=== PATIENT | male | born 1990 | race Caucasian/White ===

== ENCOUNTER 2018-04-19 00:49 | Emergency (ER) | payer SELFPAY ==
[~2018-04-19] VITALS: Ht 180.3 cm; Wt 104.0 kg
[2018-04-19] MEDS ORDERED: MAGNESIUM/ALUMINUM HYDROXIDE/SIMETHICONE 30ML UDC PO STA (02:12)
[2018-04-19] MEDS ORDERED: VISCOUS LIDOCAINE 2% 15 ML UDC PO STA (02:12)
[2018-04-19 02:32] LABS: BASOPHILS % 0.4 % (0.0-2.0); EOSINOPHILS % 0.1 % (0.0-5.0); HEMATOCRIT. 45.8 % (42.0-52.0); HEMOGLOBIN. 15.6 g/dL (14.0-18.0); LYMPHOCYTES % 12.9 % (20.0-50.0); MEAN CORPUSCULAR HEMOGLOBIN 30.6 pg (28.0-32.0); MEAN CORPUSCULAR VOLUME 89.8 fL (80.0-94.0); MEAN PLATELET VOLUME 10.4 fl (7.4-10.4); NEUTROPHILS % 82.6 % (40.0-76.0); PLATELET 233 x1000/uL (130-400); RED BLOOD CELL COUNT 5.11 mill/uL (4.7-6.1); RED CELL DISTRIBUTION WIDTH 12.9 % (11.6-14.6)
[2018-04-19 02:39] LABS: CHLORIDE 105 mEq/L (98-107)
[2018-04-19 02:45] LABS: CLARITY URINE CLEAR (CLEAR); COLOR URINE DARK YELLOW (YELLOW); KETONES URINE TRACE (NEGATIVE); LEUKOCYTE ESTERASE URINE NEGATIVE (NEGATIVE); NITRITE URINE NEGATIVE (NEGATIVE); OCCULT BLOOD URINE NEGATIVE (NEGATIVE); PROTEIN URINE 1+ (NEGATIVE); SPECIFIC GRAVITY URINE 1.024 (1.005-1.030)
[2018-04-19 05:34] VITALS: BP 134/84
== END 2018-04-19 05:37 | disposition home or self-care (01) ==
LOC: ER 00:49
DX: K29.70 Gastritis, unspecified, without bleeding (principal)
CPT/HCPCS: 36415; 80053; 81003; 83690; 85025; 93005; 99285; J7030

== ENCOUNTER 2018-04-20 00:06 | Emergency (ER) | payer SELFPAY ==
[~2018-04-20] VITALS: Ht 180.3 cm; Wt 110.0 kg
[2018-04-20] MEDS ORDERED: VISCOUS LIDOCAINE 2% 15 ML UDC MM STA (02:59)
[2018-04-20] MEDS ORDERED: MAGNESIUM/ALUMINUM HYDROXIDE/SIMETHICONE 30ML UDC PO STA (02:59)
[2018-04-20] MEDS ORDERED: ACETAMINOPHEN 500MG TABLET PO ONE (03:00)
[2018-04-20] MEDS ORDERED: ONDANSETRON 4MG ODT PO ONE (03:00)
[2018-04-20 05:32] VITALS: BP 122/68
== END 2018-04-20 05:34 | disposition home or self-care (01) ==
LOC: ER 00:06
DX: R10.13 Epigastric pain (principal); K76.0 Fatty (change of) liver, not elsewhere classified
CPT/HCPCS: 76705; 99284; Q0162